=== PATIENT | female | born 2000 | race Caucasian/White ===

== ENCOUNTER 2023-08-04 12:57 | Outpatient (CLI) | payer BC, SELFPAY ==
--- NOTE | 2023-08-04 13:00 | CRLHL7_ITS ---
For Patients: As a result of the Century Cures Act, medical imaging exams and procedure reports are released immediately into your electronic medical record. You may view this report before your referring provider. If you have questions, please contact your health care provider. INDICATION: First trimester scan, establish dates. COMPARISON: None. TECHNIQUE: Real-time fontaine-scale imaging of the pelvis was performed. FINDINGS: Sonographic imaging demonstrates a single living intrauterine gestation. The embryo demonstrates a regular cardiac rate measuring 1.8 beats per minute. The embryo`s crown-rump length measurement of 1.8 cm corresponds to a gestational age of 8 weeks 2 days with a sonographic due date of 03/13/2024. There is a normal-appearing yolk sac. There are no gross abnormalities noted within the embryo at this early state of development. The gestational sac has a normal appearance. There is no evidence of a perigestational hemorrhage. The amount of fluid within the sac appears appropriate for gestational age. The cervix is closed. The myometrium appears normal. Right ovary not visualized. Corpus luteal cyst left ovary. There are no suspicious fluid collections noted in the cul-de-sac. IMPRESSION: Single living intrauterine with sonographic gestational age 8 weeks 2 days and sonographic due date of 03/13/2024. Dictated by Osmar Eldridge MD @ 08/04/2023 3:40:58 PM (Electronically Signed)
== END 2023-08-04 12:58 | disposition home or self-care (01) ==
LOC: US 13:01
PROVIDERS: Visit Provider Advanced Practice Midwife
DX: Z34.91 Encounter for supervision of normal pregnancy, unspecified, first trimester (principal); Z3A.01 Less than 8 weeks gestation of pregnancy
CPT/HCPCS: 76801; 86592; 86703; 86704; 86706; 86762; 86787; 86803; 86850; 86900; 86901; 87086; 87340

== ENCOUNTER 2023-10-31 12:49 | Outpatient (CLI) | payer BC, SELFPAY ==
--- NOTE | 2023-10-31 13:00 | CRLHL7_ITS ---
For Patients: As a result of the Century Cures Act, medical imaging exams and procedure reports are released immediately into your electronic medical record. You may view this report before your referring provider. If you have questions, please contact your health care provider. INDICATION: Evaluate anatomy. COMPARISON: 08/04/2023 TECHNIQUE: Real time fontaine scale imaging of the fetus was performed as well as color Doppler analysis of the umbilical vessels. FINDINGS: Sonographic imaging demonstrates a single living intrauterine gestation. Fetus demonstrates a regular cardiac rate of 144 beats per minute. Fetus has a vertex position. The placenta lies posteriorly without evidence of placenta previa. The placental edge is located 3.3 cm from the internal cervical os. Amniotic fluid volume appears normal. Single deepest vertical pocket: 3.6 cm. The cervix is closed and measures 4.5 cm in length. The composite ultrasound gestational age is calculated at 20 weeks 4 days with an estimated sonographic due date of 03/15/2024. The estimated weight is 391 grams which lies at the 83rd %. The following biometric measurements were obtained: Biparietal diameter: 4.5 cm/19 weeks 4 days 20th% Head circumference: 17.9 cm/20 weeks 2 days 43rd% Abdominal circumference: 16.9 cm/21 weeks 6 days 89th% Femur length: 3.3 cm/20 weeks 1 day 38th% The HC/AC ratio measures: 1.06 range (1.07-1.25) On anatomic survey, there is a normal appearance of the cerebral ventricles, cavum septi pellucidi, cisterna magna and cerebellum. The nose, lips, and facial profile appear normal. The cervical, thoracic and lumbar spine are well visualized and appear normal. There is a normal four-chamber heart view and the left and right ventricular outflow tracts appear normal. The diaphragm and stomach appear normal. The kidneys and bladder also appear normal. There is a normal three-vessel cord and cord insertion site. The four extremities appear normal. IMPRESSION: Normal OB ultrasound exam with concordance of clinical and sonographic dating. No intrinsic abnormalities noted on anatomic survey. Dictated by Osmar Eldridge MD @ 11/01/2023 10:42:41 AM (Electronically Signed)
== END 2023-10-31 12:50 | disposition home or self-care (01) ==
LOC: US 12:50
PROVIDERS: Visit Provider Advanced Practice Midwife
DX: Z34.92 Encounter for supervision of normal pregnancy, unspecified, second trimester (principal); Z3A.20 20 weeks gestation of pregnancy
CPT/HCPCS: 76805

== ENCOUNTER 2023-12-29 09:40 | Outpatient (CLI) | payer BC, SELFPAY | END 2023-12-29 09:41 | disposition home or self-care (01) | LOC: NFLDREF 01-10 12:05 | PROVIDERS: Visit Provider Advanced Practice Midwife | DX: Z34.93 Encounter for supervision of normal pregnancy, unspecified, third trimester (principal) | CPT/HCPCS: 86592 ==

== ENCOUNTER 2024-02-23 11:50 | Outpatient (CLI) | payer BC, SELFPAY | END 2024-02-23 11:51 | disposition home or self-care (01) | LOC: NFLDREF 02-26 06:43 | PROVIDERS: Visit Provider Advanced Practice Midwife | DX: Z34.93 Encounter for supervision of normal pregnancy, unspecified, third trimester (principal) | CPT/HCPCS: 87081; 87653 ==

== ENCOUNTER 2024-03-24 02:09 | Inpatient (IN) | payer BC, SELFPAY ==
[2024-03-24] VITALS (37 sets, daily range): BP systolic 103–126; BP diastolic 57–80; PULSE 70–124; RESP 12–20; TEMP 36.4–37.2; O2SAT 96–98; BMI 31.9
--- NOTE | 2024-03-24 03:11 | W.PM.LDBA ---
Subjective History of Present Illness Narrative: Patient is being admitted to Labor and Delivery for labor. She is a 23 year old at 41.0 weeks gestation. Her full history and physical was dictated by Mell Donaldson CNM on 02/29/24. Please see this for details. She was triaged earlier in the evening and decided to go home. Her contractions continued to increase in intensity and she made the decision to come back. She had made some cervical change at that time and was found to be 4cm/70%/-3 per RN exam. She denies leaking fluids but is continuing to have a a small amount of bloody show since her cervical exam and membrane sweep on Monday in clinic. She is appreciating good movement and had a reactive tracing after admission. We discussed way to encourage labor with labor warm up circuit and pumping as well as resting if able in the early stages of labor. She denies any questions at this time and is supported by her . Specific Issues/Plans : Mitesh H&P done by Mell Donaldson CNM on 02/29/24 1. Varicella equivocal Recommend vaccine Needs PP pap Tdap: 01/12/2024 OB - Problem Based A/P Additional Plan (1) Pain during labor: Status: Acute (2) Post term , 41 weeks: Status: Acute Plan ASSESSMENT:? at 41.0 weeks gestation? GBS negative? Uncomplicated ? Spontaneous labor postdates? ?? PLAN:? 1. Desires water . Consent signed. Hep C negative.? 2. Candidate for analgesia of choice. Planning unmedicated .? 3. Anticipate .? 4. Expectant management at this time.? 5. IV not needed at this time. Consider placement with change in patient condition. 6. Intermittent auscultation after reactive tracing. Delivery/Labor/Induction Plan Plan: expectant management OB Result Labs Blood Type: A (+) positive Rubella: immune RPR/VDLR: nonreactive GBS Status: negative OB Exam Physical Exam Vital signs: Pulse BP 72 122/76 03/24/24 01:34 03/24/24 01:34 Narrative: Psychiatric:? Alert and oriented x3? HEENT:? Normocephalic, atraumatic? Neck:? Supple without adenopathy or thyromegaly? Lungs:? Clear to auscultation bilaterally? Heart:? Regular rate and rhythm, no murmur, rub or gallop? Abdomen:? Soft, nontender, and gravid? Extremities:? No edema or erythema? Detailed Labor and Delivery Exam Patient Gravid: Yes Dilation (cm): 4 (per RN exam) Effacement (%): 70 Contraction Frequency: 2-5 minutes Contraction intensity: Moderate (breathing through but coping well) Fetus (Single) Station: -3 Amniotic Membrane Status: intact Heart Rate Baseline: 115 Monitor Accelerations: Present Monitor Decelerations: None Group Home Variability: Moderate (6-25)
[2024-03-24] MEDS: LIDOCAINE 1 % PF 30 ML INJECTION (12:35)
[2024-03-24] MEDS: TRANEXAMIC ACID 100 MG/ML INJ 1000 MG IV (13:24)
[2024-03-24] MEDS: OXYTOCIN 10 UNIT/ML INJ IM (13:37)
--- NOTE | 2024-03-24 13:49 | PM.OBPNL ---
Subjective Time Seen by Provider: 07:30 Date Seen: 03/24/24 Narrative: I was notified around 6:15 that Breanna's contractions had increased in intensity and she was considering hydrotherapy. When I was on my way at 0645 I was notified that she was in the tub. On my arrival she was coping well with contractions in the tub. She was feeling some pressure with contractions but denies an urge to push.She was supported by her , the RN and I. She was encouraged to try multiple positions for comfort and the assist with descent. Will continue to labor in the tub. Declines SVE at this time but can consider and offer SVE if her urge to push increases or she requests. Discussed briefly AROm but she declines at this time. Objective Vital Signs: Last Vital Signs Temp 98.3 F 03/24/24 11:03 Pulse 102 H 03/24/24 13:42 Resp 16 03/24/24 08:51 BP 126/74 03/24/24 13:42 Pulse Ox 96 03/24/24 11:03 Contractions Monitor mode: None (intermittent auscultation ) Contraction Frequency: 2-4 minutes Contraction pattern: Regular Contraction intensity: Strong/Firm (breathing through but coping well) Assessment Assessment: active labor Heart Rate Baseline: 120 (110-120 by doppler) Plan Plan: ASSESSMENT:? at 41.0 weeks gestation? GBS negative? Uncomplicated ? Spontaneous labor postdates? ?? PLAN:? 1. Desires water . Consent signed. Hep C negative.? 2. Candidate for analgesia of choice. Planning unmedicated .? 3. Anticipate .? 4. Expectant management at this time.? 5. IV not needed at this time. Consider placement with change in patient condition. 6. Intermittent auscultation unless conditions change.
--- NOTE | 2024-03-24 13:49 | W.PM.OBVAGDE ---
OB Procedure Vag Delivery Mother Details Mother Details: The patient is a 23 year-old, 1, Para 0, admitted on 03/24/24 at 41.0 Days gestation. : 1 Para: 1 Weeks Gestation: 41.0 Admission Date: 03/24/24 Additional Details Amniotic Membrane Status: AROM Amniotic Membrane Rupture Date: 03/24/24 Amniotic Membrane Rupture Time: 09:55 Amniotic Membrane Fluid Description: Meconium Stained (lightly stained fluid) Analgesia/Anesthesia Type: None Waterbirth: Yes Pitcoin: Yes ([facility] only) Intrapartal Events: Excessive Bleeding Delivery augmentation: rupture of membranes Labor Onset: 06:00 Complete: 09:55 Pushin:55 (felt pressure/urge at 0930 but only small pushing without much force before this time) Heart: heart tones during second stage were dopplered in the 120-130. Occasional decreases heard to 110 with rapid return to baseline. Not heard with every contraction or auscultation. Delivery Details Delivery Date: 03/24/24 Delivery Time: 12:12 Route of delivery: Infant Gender: Male Infant Viability: Alive; Heart Rate Present Position at Delivery: OA Delivery Details: Patient was admitted for active labor postdates and progressed with AROM augmentation during 2nd stage. AROM noted at 0955 with clear fluid. Patient was complete at 0955 and pushing at 0955 but did push occasionally but without strong effort or direction and not with every contraction around 0930. of a viable male at 1212 in in the tub. Vertex delivered ALEX with a hand at his face at delivery. No nuchal cord or shoulder. Body delivered easily and without incident. Infant passed to mothers abdomen with a vigorous cry. Cord was clamped and cut at about 3 minutes due to bleeding in the tub. Presumed to be placenta separation. APGARS were 8 at one minute and 9 at five minutes respectively. Mouth was bulb suctioned. Intact placenta with a 3 vessel cord delivered spontaneously at 1253. It was slow to delivery. 800mg rectal Cytotec was given to assist in its delivery. Fundus firm. 3rd degree laceration suspected and confirmed by Dr. Pearson t be a 3B. Repaired in typical fashion. QBL 1215mL, with 400 EBL in the tub, 500 QBL in the drape and 315 per weight in sponges. Much of the bleeding in the drape and the sponges was from a laceration that was bleeding. Her fundus was firm with only a few small clots expressed with palpation. Mother and baby stable; mother plans to breastfeed. weight 3925g.? 1 Minute Interval Total Score: 8 5 Minute Interval Total Score: 9 Additional Details Shoulder Dystocia: No Placenta Delivery Time: 12:53 Placental Delivery Description: Spontaneous Delivery repair: Vicryl Procedure Done: Global Blood Loss: 1,215 (400 EBL in tub, 500 QBL in drape and 315 per weight in sponges) Laceration: Perineal - 3rd Degree (3B, repiared by Dr. Wallace) Episiotomy Description: None Blood Loss Measurement Type: QBL Bakri Used: No Sponge/Need Count Correct: Yes Cord Vessel Description: 3 Vessels Event Summary Status: Mother and infant were stable after delivery. Disposition: floor
--- NOTE | 2024-03-24 14:45 | P.OBCN_ITS ---
OB - CN: HPI Date of Consult Date Seen: 03/24/24 Consult date: 03/24/24 Requesting Physician: Cassie Alexander CNM Primary Care Provider: Not a Local Provider Consult Narrative Reason for consult: vaginal repair Narrative: The patient is a 23 year old G 1 P 1 at 41 0/7 weeks gestation that was admitted to the Center on 03/24/24 for delivery. Patient just had a waterbith and I am asked to come in to evaluate perineal laceration. History History 1 Elective abortions 0 Para 1 Spontaneous abortions 0 Hx # Term Pregnancies 1 Ectopic pregnancies Hx # Pregnancies 0 Multiple births Number of Living Children 1 Past Pregnancies Del. Date GA/Weeks Outcome Route wt Inf Gender Labor Lgth Anesthesia Location Provider Compli 03/24/24 41 live - full term 3.912 kg Male none Cassie Alexander APRN, CNM Delivery Date: 03/24/24 Last Updated by: Galina Myers ~ SET O TYPE OPERATOR, SET O TYPE OPERATOR water Labs Blood type: A (+) positive Rubella: immune RPR/VDLR: nonreactive GBS status: negative OB Labs: Lab Assessment Start: 03/24/24 02:12 Freq: ONCE Status: Complete Protocol: PC.OBGBS Activity Type Activity Date Activity User E-sign Co-sign Detail Recorded Client Recorded Date Recorded By Document 03/24/24 02:14 [facility] [id number] 03/24/24 02:17 [facility] 03/24/24 02:14 Lab Assessment GBS Status negative GBS Additional Criteria None No Treatment Needed OK Are Labs Available Yes Maternal Blood Type A Maternal RH Factor Positive Evaluate Maternal Rubella Immune Status Immune Hepatitis B Surface Antigen Negative Maternal HIV Status Negative Maternal Syphillis (RPR) Status Negative PFS PFS Surgical History (Updated 08/04/23 @ 14:12 by Amber Isbell CNM) Guin teeth extracted ?K08.409 - Partial loss of teeth, unspecified cause, unspecified class (ICD- 10) Family History (Updated 08/04/23 @ 14:13 by Amber Isbell CNM) Maternal Grandmother Lung cancer Social History (Updated 08/04/23 @ 21:20 by Amber Isbell CNM) Narrative: SOCIAL? ? Education: bachelors? ? Work: learning disabilities resource teacher? ? Partner: Mitesh, , spotlight operator? ? Lives with: Mitesh? ? Pets: dog? ? Abuse: Denies past. Unable to assess current, partner present? ? Special Diet: Denies? ? Ok with a blood transfusion: yes? ? Culture or jehovah's witness beliefs: jain? RISK FACTORS? ? Exercise Times/wk: occasionally. ? ? Depression/Anxiety: denies? ? Previous Treatments NA Therapy NA VALENTINA: 0 PHQ 9: 4? ? Seat Belt Use: Routinely ? Smoking: Denies past/present? ? Alcohol/day: Denies while ? ? Caffeine: occasionally ? ? Drug Use: Denies past/present? ? What is your current living situation?: I presently have a place to live Problems where you live: no known problems In the past 12 months, utilities in danger of being shut off: no In past 12 months, lack of transportation kept you from medical appts, meetings, work, or getting things needed for daily living: no In the past 12 mos, have been you worried that your food would run out before you had money to buy more?: never true In the past 12 mos, the food you bought just didn't last and you didn't have money to buy more?: never true Smoking Status: Never smoker How often does anyone, including family, friends and others, physically hurt you : never How often does anyone, including family, friends and others, insult or talk down to you: never How often does anyone, including family, friends and others, threaten you with harm: never How often does anyone, including family, friends and others, scream or curse at you: never Little interest or pleasure in doing things: not at all Feeling down, depressed, or hopeless: not at all Meds Home Medications and Allergies Home Medications ?Medication ?Instructions ?Recorded ?Confirmed ?Type mupirocin 2 % topical ointment 1 applic topical .qd PRN 08/04/23 04/09/24 History vits no.126-ferrous fum 1 tab PO .1qd 08/04/23 04/09/24 History 28 mg iron-folic acid 800 mcg tablet (Classic ) Allergies Allergy/AdvReac Type Severity Reaction Status Date / Time No Known Drug Allergies Allergy Verified 04/09/24 11:13 OB - H&P: Exam Physical Exam: Vital signs: Temp Pulse Resp BP Pulse Ox 98.3 F 117 H 16 116/72 96 03/24/24 11:03 03/24/24 14:40 03/24/24 08:51 03/24/24 14:40 03/24/24 11:03 Narrative: Upon arrival patient is found in lithotomy position. Placenta has been delivered and CNM at bedside. EBL so far is close to 400-500mL as per CNM report. Upon evaluation there is significant swelling of bilateral labia minora and vaginal tissue. A 3a perineal laceration identified. A left vaginal laceration at around 3-4 o clock also identified with associated small hematoma. At this point, 1g of TXA was in process of being given to patient. Perineal laceration was infiltrated with Lidocaine 1% plain. Superficial fibers of external sphicter muscle approximated in the midline with Vicryl 3-0, 2 interrupted stitches utilized. The superficial transverse perineal muscles and the perineal fascia were then approximated in the midline with Vicryl 3-0 in a continuous interlocking fashion and this helped manage bleeding from this laceration. The rest of the laceration was repaired in the usual manner starting from the vaginal apex, in a continuous interlocking fashion, approximating the perineal skin and finishing with approximation of torned hymenal remnant. The left vaginal laceration was also infiltrated with Lidocaine 1% plain and utilizing Vicryl 4-0 in a continuous interlocking fashion laceration repaired and hemostasis was achieved, no evidence of expanding hematoma at end of procedure. OB - CN: A/P Assessment and Plan (1) Pain during labor: Status: Resolved (2) Post term , 41 weeks: Status: Resolved Plan Assisted CNM with laceration repair as above.
[2024-03-24] MEDS: CEFAZOLIN 2 GM in 0.9 % SODIUM CHLORIDE Mini-bag 100 ML IVPB (16:38)
[2024-03-24 18:22] LABS: Eosinophils Percent Auto 0.1 % (0.0-7.0); Hematocrit 37.9 % (33.0-51.0); Hemoglobin* 13.1 gm/dL (12.0-16.0); Immature Granulocytes Pct Auto 0.2 %; Lymphocytes Percent Auto 3.8 % (20-44); Mean Corpuscular HGB Conc 35 gm/dL (32-36); Mean Corpuscular Hemoglobin 31 pg (26-34); Mean Corpuscular Volume 89 fL (80-100); Monocytes Percent Auto 3.1 % (0.0-11.0); Neutrophils Percent Auto 92.8 % (42.0-72.0); Platelet Count* 201 K/uL (140-440); RDW Coefficient of Variation % 12.8 % (11.5-15.5); Red Blood Count 4.25 m/uL (4.00-5.20); Slide Review Reflex No; White Blood Count* 23.86 K/uL (4.50-11.00)
[2024-03-24] MEDS: LACTATED RINGERS 1000 ML 1,000 ML 800 ML IV (18:22)
[2024-03-24] MEDS: IBUPROFEN 600 MG TABLET PO (19:41)
[2024-03-24] MEDS: LACTATED RINGERS 1000 ML 1,000 ML 125 ML IV (19:43)
[2024-03-24] MEDS: DOCUSATE SODIUM 100 MG CAPSULE PO (19:56)
[2024-03-24] MEDS: ACETAMINOPHEN 500 MG TABLET 1000 MG PO (21:40)
[2024-03-25] MEDS: IBUPROFEN 600 MG TABLET PO ×2 (01:18→09:18)
[2024-03-25] MEDS: ACETAMINOPHEN 500 MG TABLET 1000 MG PO ×2 (03:12→14:29)
[2024-03-25] MEDS: LACTATED RINGERS 1000 ML 1,000 ML 125 ML IV ×2 (03:17→11:10)
[2024-03-25 03:19] VITALS: BP 100/64; PULSE 84; RESP 12; TEMP 36.4
[2024-03-25] MEDS: BENZOCAINE/MENTHOL SPRAY 85 GM AEROSOL 1 APPLIC TOPICAL (04:15)
[2024-03-25] MEDS: LANOLIN CREAM 1 APPLIC TOPICAL (06:20)
[2024-03-25 06:24] LABS: Basophils Percent Auto 0.3 % (0.0-3.0); Eosinophils Percent Auto 0.7 % (0.0-7.0); Hematocrit 30.2 % (33.0-51.0); Hemoglobin* 10.3 gm/dL (12.0-16.0); Immature Granulocytes Pct Auto 0.3 %; Mean Corpuscular HGB Conc 34 gm/dL (32-36); Mean Corpuscular Hemoglobin 31 pg (26-34); Mean Corpuscular Volume 91 fL (80-100); Monocytes Percent Auto 6.9 % (0.0-11.0); Neutrophils Percent Auto 72.8 % (42.0-72.0); Platelet Count* 180 K/uL (140-440); RDW Coefficient of Variation % 13.4 % (11.5-15.5); Red Blood Count 3.31 m/uL (4.00-5.20); White Blood Count* 15.91 K/uL (4.50-11.00)
[2024-03-25 06:25] LABS: Slide Review Reflex No
--- NOTE | 2024-03-25 07:37 | PM.OBPNVD1 ---
OB - PN:Subj Subjective Date Seen: 03/25/24 Patient comments OB post-: no complaints, pain well controlled and flatus present [place] status: and doing well feeding status: exclusively Narrative: Breanna is a 23 y.o. who was admitted to [facility] for labor.? She had an uncomplicated NVD.? ?? The patient feels well.? The pain is well controlled with current medications.? She has no new complaints.? She is breast feeding and reports things are going well.? the patient has done well.? Vitals have been stable.? She has remained afebrile.? Has a good appetite, is tolerating a general diet.? She is voiding without difficulty.? She is passing gas and has not had a bowel movement.? She is ambulating and denies any dizziness.? Has Small amount of rubra lochia.? OB - PN: Obj Exam Physical Exam: Vital signs: Temp Pulse Resp BP Pulse Ox O2 Del Method 97.5 F L 84 12 100/64 96 Room Air 03/25/24 03:19 03/25/24 03:19 03/25/24 03:19 03/25/24 03:19 03/24/24 23:54 03/24/24 23:54 Narrative: GENERAL APPEARANCE:? normal affect, alert, no distress? MOOD:? appropriate? HEENT: normocephalic, neck supple, full ROM? CHEST:? Symmetrical chest wall movement.? Normal respiratory effort.? Clear to auscultation ? HEART:? regular rate and rhythm? ABDOMEN:? soft, non-tender. Uterine fundus is firm, at Umbilicus, Midline and is appropriate for the stage of recovery.? Bowel sounds present.? PERINEUM:? mild edema of the perineum, there is a 3rd degree laceration that is healing well.? EXTREMITIES:? normal and trace edema? OB - PN: Obj Data Labs Labs: Laboratory Results - last 24 hr 03/24/24 03/25/24 13:23 06:12 WBC 23.86 H 15.91 H RBC 4.25 3.31 L Hgb 13.1 10.3 L Hct 37.9 30.2 L MCV 89 91 MCH 31 31 MCHC 35 34 RDW Coeff of Deisy 12.8 13.4 Plt Count 201 180 Neut % (Auto) 92.8 H 72.8 H Lymph % (Auto) 3.8 L 19.0 L Sullivan % (Auto) 3.1 6.9 Eos % (Auto) 0.1 0.7 Baso % (Auto) 0.0 0.3 Neut # (Auto) 22.10 H 11.60 H Lymph # (Auto) 0.90 3.00 H Sullivan # (Auto) 0.70 1.10 H Eos # (Auto) 0.00 0.10 Baso # (Auto) 0.00 0.00 Abs Immat Gran (auto) 0.00 0.00 Imm/Tot Granulo (auto) 0.2 0.3 Blood Type A Positive Antibody Screen NEGATIVE Crossmatch (AHG) See Detail OB - PN: A/P Delivery Assessment and Plan (1) Post term , 41 weeks: Status: Acute (2) care and examination immediately after delivery: Status: Acute (3) Lactating mother: Status: Acute (4) Third degree obstetrical tear: Status: Acute Plan day: 1 Plan: routine care Comments: G 1 P 1 status post uncomplicated NVD??? 1.? Continue route PP cares? 2.? .? May see if desired? 3.? Anticipate discharge home tomorrow? 4. ?Acute anemia.? Iron supplement ordered. 5. 3rd degree laceration healing. Stool softeners and perineal care per routine.
[2024-03-25 08:21] VITALS: BP 104/55; PULSE 76; RESP 18; TEMP 36.6; O2SAT 96
[2024-03-25] MEDS: DOCUSATE SODIUM 100 MG CAPSULE PO (09:18)
[2024-03-25] MEDS: FERROUS SULFATE 325 MG TABLET 650 MG PO (09:21)
[2024-03-25] MEDS: polyethylene glycoL 3350 17 GM PACK PO (09:21)
[2024-03-25 12:04] VITALS: BP 117/68; PULSE 88; RESP 18; TEMP 36.6; O2SAT 96
--- NOTE | 2024-03-25 16:28 | P.DS_ITS ---
DS: Providers Provider Date Seen: 03/25/24 Date of admission: 03/24/24 02:09 Primary care physician: Not a Local Provider Admitting Clinician: Cassie Alexander CNM Attending Physician on discharge: Juan A Donaldson CNM Date of Discharge: 03/25/24 DS: Diagnosis Discharge Diagnosis (1) care and examination immediately after delivery: Status: Acute (2) Lactating mother: Status: Acute (3) Third degree obstetrical tear: Status: Acute Exam Narrative: Exam Narrative: VSS, afebrile GENERAL APPEARANCE: ?normal affect, alert, no distress MOOD: ?appropriate HEENT: normocephalic, neck supple, full ROM CHEST: ?Symmetrical chest wall movement. ?Normal respiratory effort. ?Clear to auscultation HEART: ?regular rate and rhythm ABDOMEN: ?soft, non-tender. Uterine fundus is firm, at Umbilicus, Midline and is appropriate for the stage of recovery. ?Bowel sounds present. PERINEUM: ?mild edema of the perineum, there is a 3rd degree laceration that is healing well. EXTREMITIES: ?normal and no edema Const: Vital Signs, click to edit/add: Vital Signs - 24 hr 03/24/24 16:52 03/24/24 17:43 03/24/24 19:22 Temperature 98.6 F 99.0 F 98.2 F Pulse Rate [Pulse Oximeter] 110 H 124 H 91 Respiratory Rate 12 12 Blood Pressure [Le ft Arm] 113/76 103/66 Pulse Oximetry 96 97 Oxygen Delivery Me thod Room Air Room Air 03/24/24 21:30 03/24/24 23:54 03/25/24 03:19 Temperature 98 F 98.3 F 97.5 F L Pulse Rate [Pulse Oximeter] 101 H 89 84 Respiratory Rate 16 12 12 Blood Pressure [Le ft Arm] 107/67 112/71 100/64 Pulse Oximetry 96 96 Oxygen Delivery Me thod Room Air Room Air 03/25/24 08:21 03/25/24 12:04 Temperature 97.9 F 97.9 F Pulse Rate [Pulse Oximeter] 76 88 Respiratory Rate 18 18 Blood Pressure [Le ft Arm] 104/55 L 117/68 Pulse Oximetry 96 96 Oxygen Delivery Me thod Room Air Room Air Documenting provider has reviewed patient's vital signs: yes OB - DS: Summary Hospital Course Hospital Course: Breanna is a 23 y.o. who was admitted to [facility] for labor. ?She had an uncomplicated NVD.?The patient feels well. ?The pain is well controlled with current medications. ?She has no new complaints. ?She is breast feeding and reports things are going well.? the patient has done well.? Vitals have been stable.? She has remained afebrile.? Has a good appetite, is tolerating a general diet. ?She is voiding without difficulty.? She is passing gas and has not had a bowel movement.? She is ambulating and denies any dizzine ss.? Has Small amount of rubra lochia. ?She is planning NFP for prevention. She is requesting discharge today. Peripartum Data Infant delivery method: Vaginal Laceration description: Perineal - 3rd Degree complications: none [place] Gender: Male Infant Discharge Plan: Home Status at Discharge Functional status at discharge: independent ambulation Overall status at discharge: patient is progressing back to baseline Time Spent with Patient Time attestation: Total time spent providing and/or coordinating discharge services: Time spent: Less than 30 minutes Discharge Plan Discharge Disposition: Home, Self-Care Date of Admission: 03/24/24 02:09 Attending Provider on Discharge: Juan A Donaldson Primary Care Provider: Provider,Not a Local Condition: Stable Anticipated Discharge Date/Time: 03/25/24 18:00 Discharge Medications: New polyethylene glycol 3350 [Miralax] 17 gram Powder In Packet 17 g PO DAILY Qty: 60 0RF acetaminophen 500 mg Tablet 1,000 mg PO Q6H PRNQty: 0 0RF ferrous sulfate 325 mg (65 mg iron) Tablet 650 mg PO Q48H Qty: 30 0RF docusate sodium 100 mg Capsule 100 mg PO BID Qty: 90 2RF ibuprofen 600 mg Tablet 600 mg PO Q6H PRNQty: 60 0RF Continued Classic 28 mg iron- 800 mcg tablet 1 tab PO .1qd mupirocin 2 % ointment 1 applic topical .qd PRN Discontinued calcium carbonate [Tums] 200 mg calcium (500 mg) tablet,chewable 200 mg PO ONCE Discharge Orders: Discharge Order (Routine); Ordered 03/25/24 Ordered By: Juan A Donaldson Patient Education: OB Over the Counter Medication Information, OB Vaginal/Breast Feeding Additional Instructions: Discharge instructions were reviewed with the patient including signs and symptoms of infection and home going medications Nothing vaginally for 6 weeks: no tampons or intercourse Off Work or School for 6 weeks 2-week visit: discuss infant feeding concerns, review control options and screen for anxiety/depression. 6-week visit for an annual exam. consultation services are available to all mothers and babies for the first year after delivery.? To make an appointment, please call [phone]. Activity Level: Activity as Tolerated Discharge Diet: Regular Follow Up Appointments: Provider,Not a Local [Primary Care Provider] - [facility] [Provider Group] Forms: [employer] Medical Info Instructions
[2024-03-26 18:54] LABS: Rapid Plasma Reagin (RPR) Non Reactive (Non Reactive)
== END 2024-03-25 17:40 | disposition home or self-care (01) | DRG 560 ==
LOC: OB OUT 02:13 → OB 02:13
PROVIDERS: Admitting Provider Advanced Practice Midwife; Visit Provider Advanced Practice Midwife
DX: O70.21 Third degree perineal laceration during delivery, IIIa (principal); O48.0 Post-term pregnancy; Z3A.41 41 weeks gestation of pregnancy; Z37.0 Single live birth; O77.0 Labor and delivery complicated by meconium in amniotic fluid; O90.81 Anemia of the puerperium; D62 Acute posthemorrhagic anemia
CPT/HCPCS: 36415; 59025; 85025; 86592; 86850; 86900; 86901; 86922; G0463; A9270; J0690; J2001; J2590; J7120

== ENCOUNTER 2025-07-29 14:01 | Outpatient (CLI) | payer BC, SELFPAY ==
--- NOTE | 2025-07-29 14:00 | CRLHL7_ITS ---
For Patients: As a result of the Century Cures Act, medical imaging exams and procedure reports are released immediately into your electronic medical record. You may view this report before your referring provider. If you have questions, please contact your health care provider. OB ULTRASOUND SURVEY BRYANNA by US: 12/13/2025. GA: 20 w, 3 d. INDICATION: anatomy. TECHNIQUE: Real time grayscale imaging of the fetus was performed. Evaluate anatomy. Transabdominal imaging performed. position: Vertex. Multiple positions. Cervix: Visualized. Technique: Transabdominal. Length of closed cervix: 3.9 cm. Placenta/cord: Posterior. Left wall. Technique: Transabdominal. Placenta tip to internal OS: 10.2 cm. Umbilical Cord: 3-vessel cord. Placenta insertion: Eccentric. Amniotic Fluid: 4.7 cm SDP (greater than/equal to: 2- less than 8 cm). SURVEY: Observed Structures. Calvarium/Spine: Cerebellum: 2.2 cm, 21 w 5 d. Cisterna Magna: 5.0 mm. Nuchal Fold: 3.3 mm. Lateral Ventricle: 5.1 mm. CSP: Yes. Midline Falx: Yes. Choroid Plexus: Yes. Spine: Yes. Abdomen: Stomach: Yes. Abd Cord Insertion: Yes. Urinary Bladder: Yes. Kidneys: Yes. Diaphragm: Yes. Face: Nose/lips: Yes. Orbital view: Yes. Profile: Yes. Limbs: Upper Extremities: Yes. Lower Extremities: Yes. Hands: Yes. Feet: Yes. Vascular: 4-Chamber Heart: Yes. LVOT: Yes. RVOT: Yes. 3VV: Yes. 3VTV: Yes. BPD: 4.9 cm. 20 w, 6 d, 64.9 percent. HC: 18.4 cm. 20 w, 6 d, 58.8 percent. AC: 16.0 cm. 21 w, 1 d, 65.8 percent. FL: 3.2 cm. 19 w, 6 d, 22.8 percent. FL/AC ratio: 19.85 percent. HC/AC ratio: 1.15. heart rate: 154 bpm. age by this US: 20 w, 6 d. BRYANNA by this US: 12/10/2025. EFW: 361.87 g. Weight: 0 lbs, 13 oz. Percentile by BRYANNA: 52.6 percent. IMPRESSION: 1. Concordance of clinical and sonographic dating. 2. Normal anatomic survey. Osmar Eldridge M.D. Diagnostic Radiologist [email or web address] JUS/lyly jhitesh/Dictated by: Osmar Eldridge MD @ 07/29/2025 3:59:00 PM (Electronically Signed)
== END 2025-07-29 14:02 | disposition home or self-care (01) ==
LOC: US 14:01
PROVIDERS: Visit Provider Advanced Practice Midwife
DX: Z34.92 Encounter for supervision of normal pregnancy, unspecified, second trimester (principal); Z3A.20 20 weeks gestation of pregnancy
CPT/HCPCS: 76805

== ENCOUNTER 2025-09-24 08:40 | Outpatient (CLI) | payer BC, SELFPAY | END 2025-09-24 08:41 | disposition home or self-care (01) | LOC: NFLDREF 09-27 18:52 | PROVIDERS: Visit Provider Advanced Practice Midwife | DX: Z34.93 Encounter for supervision of normal pregnancy, unspecified, third trimester (principal) | CPT/HCPCS: 86592 ==